=== PATIENT | male | born 1970 | race Caucasian/White ===

== ENCOUNTER 2022-05-07 18:31 | Emergency (ER) | payer OTHER ==
[2022-05-07 18:43] VITALS: BP 143/84; PULSE 76; RESP 19; TEMP 98.7; BMI 27.8
[2022-05-07] MEDS ORDERED: METHOCARBAMOL 500 MG TABLET PO ONE (20:22)
[2022-05-07] MEDS ORDERED: KETOROLAC TROMETHAMINE 30 MG/1 ML VIAL IM ONE (20:22)
[2022-05-07] MEDS ORDERED: KETOROLAC TROMETHAMINE 30 MG/1 ML VIAL ONE (20:32)
== END 2022-05-07 20:47 | disposition home or self-care (01) ==
LOC: JERFT 18:31
DX: M54.50 Low back pain, unspecified (principal); M54.2 Cervicalgia; V49.40XA Driver injured in collision with unspecified motor vehicles in traffic accident, initial encounter
CPT/HCPCS: 99281-25